=== PATIENT | female | born 1960 | race Caucasian/White ===

== ENCOUNTER 2016-09-20 18:05 | Emergency (ER) | payer MEDICAID ==
[~2016-09-20] VITALS: Ht 160 cm; Wt 59.0 kg
[2016-09-20] MEDS ORDERED: ASPIRIN 81 MG TABLET CHEW ONE (18:22)
[2016-09-20] MEDS ORDERED: ASPIRIN 81 MG TABLET CHEW PO ONE (18:30)
[2016-09-20] MEDS ORDERED: ASPI-496 PO (18:33)
[2016-09-20 18:40] LABS: BLOOD UREA NITROGEN 16 mg/dL (7-18)
[2016-09-20 18:45] LABS: IS PT STATUS REG ER OR PRE ER? YES
[2016-09-20 20:38] VITALS: BP 132/85
== END 2016-09-20 20:58 | disposition home or self-care (01) ==
LOC: ED 20:00
DX: M51.36 Other intervertebral disc degeneration, lumbar region (principal); G62.9 Polyneuropathy, unspecified; F17.200 Nicotine dependence, unspecified, uncomplicated
CPT/HCPCS: 36415; 71010; 72072; 72110; 80048; 81001; 82040; 83036; 83880; 84484; 85025; 87086; 93005

== ENCOUNTER 2016-11-08 15:36 | Emergency (ER) | payer MEDICAID ==
[~2016-11-08] VITALS: Ht 160 cm; Wt 60.0 kg
[~2016-11-08 15:36] MED LIST: ASPI-496 PO
[2016-11-08 15:38] VITALS: BP 112/78
[2016-11-08] MEDS ORDERED: CEFAZOLIN 1,000 MG ONE (16:12)
[2016-11-08] MEDS ORDERED: SULFAMETH./TRIMETHOPRIM DS 800MG/160MG TABLET ONE (16:13)
[2016-11-08] MEDS ORDERED: SULFAMETH./TRIMETHOPRIM DS 800MG/160MG TABLET PO ONE (16:30)
[2016-11-08] MEDS ORDERED: CEFAZOLIN 1,000 MG IM ONE (16:30)
== END 2016-11-08 17:19 | disposition home or self-care (01) ==
LOC: ED 16:28
DX: L03.116 Cellulitis of left lower limb (principal)
CPT/HCPCS: 96372; 99283; J0690

== ENCOUNTER 2018-08-16 14:37 | Emergency (ER) | payer MEDICAID, OTHER ==
[~2018-08-16] VITALS: Ht 160 cm; Wt 59.6 kg
[2018-08-16 14:43] VITALS: BP 111/69
--- NOTE | 2018-08-16 15:10 | NUR ---
PT HERE FOR REPORT OF RIGHT WRIST PAIN. PT DENIES ANY MAJOR TRUAMA. REPORTS CHRONIC PAIN.
[2018-08-16] MEDS ORDERED: IBUPROFEN 200 MG TABLET ONE (15:23)
--- NOTE | 2018-08-16 15:26 | NUR ---
PT MEDICATED PER EMAR.
[2018-08-16] MEDS ORDERED: IBUPROFEN 200 MG TABLET PO ONE (15:30)
--- NOTE | 2018-08-16 16:26 | NUR ---
PT HAD SPLINT APPLIED PRIOR TO DC.
--- NOTE | 2018-08-16 16:26 | NUR ---
Patient/Caregiver given discharge instructions and they have confirmed that they understand the instructions. Patient ambulatory with steady gait.
== END 2018-08-16 16:55 | disposition home or self-care (01) ==
LOC: ED 16:05
DX: S63.521A Sprain of radiocarpal joint of right wrist, initial encounter (principal); F17.200 Nicotine dependence, unspecified, uncomplicated; W20.8XXA Other cause of strike by thrown, projected or falling object, initial encounter; Y93.89 Activity, other specified; Y92.69 Other specified industrial and construction area as the place of occurrence of the external cause; Y99.0 Civilian activity done for income or pay
CPT/HCPCS: 29125; 99284

== ENCOUNTER 2020-08-29 11:30 | Emergency (ER) | payer MEDICAID ==
[~2020-08-29] VITALS: Ht 157.5 cm; Wt 60.2 kg
[2020-08-29 13:03] LABS: BASOPHILS % (AUTO) 2 % (0-1); EOSINOPHILS % (AUTO) 3 % (1-7); LYMPHOCYTES % (AUTO) 29 % (22-44); MEAN CORPUSCULAR HEMOGLOBIN 28.3 pg (27.0-34.8); MEAN CORPUSCULAR HGB CONC 33.7 g/dL (32.4-35.8); MONOCYTES % (AUTO) 9 % (2-9); NEUTROPHILS % (AUTO) 59 % (42-75); PLATELET COUNT 289 x10^3/uL (130-400); RED BLOOD COUNT 4.44 x10^6/uL (3.82-5.3); RED CELL DISTRIBUTION WIDTH 14.7 % (9.6-15.2)
[2020-08-29 13:16] LABS: ANION GAP 4 mmol/L (5-15); CHLORIDE 108 mmol/L (98-107); CREATININE 0.73 mg/dL (0.55-1.02)
[2020-08-29 13:23] LABS: ALANINE AMINOTRANSFERASE 50 U/L (12-78); ALKALINE PHOSPHATASE 87 U/L (45-117); BILIRUBIN,TOTAL 0.4 mg/dL (0.2-1.0); TOTAL PROTEIN 7.9 g/dL (6.4-8.2)
--- NOTE | 2020-08-29 13:53 | NUR ---
PATIENT WALKED BACK FROM TRIAGE WITH CHIEF C/O BILATERAL LOWER EXTREMITY SWELLING AND SOB X1 WEEK. PER PATIENT FAMILY HISTORY OF CHF. PATIENT REPORTS SHE WAS "FINE ONE DAY AND THE NEXT DAY I WOKE UP LIKE THIS." PATIENT C/O A 'HEARTBURN" LIKE PAIN IN HER CHEST, CONNECTED TO MONITORS, VSS, CALL LIGHT WITHIN REACH.
--- NOTE | 2020-08-29 14:08 | NUR ---
ERMD AT BEDSIDE FOR EVALUATION.
--- NOTE | 2020-08-29 14:35 | NUR ---
LINING MACHINE TENDER AT BEDSIDE.
--- NOTE | 2020-08-29 14:55 | NUR ---
SURVEYOR GEOPHYSICAL PROSPECTING DONE, PATIENT AMBULATED TO BATHROOM WITH STEADY GAIT.
[2020-08-29 15:17] VITALS: BP 134/81
--- NOTE | 2020-08-29 15:27 | NUR ---
Patient given discharge instructions and prescription and they have confirmed that they understand the instructions. Patient ambulatory with steady gait with significant other. NAD, all questions answered appropriately, denies additional needs at this time. No personal belongings left in room after discharge.
== END 2020-08-29 15:28 | disposition home or self-care (01) ==
LOC: ED 13:40
DX: R60.0 Localized edema (principal); F17.210 Nicotine dependence, cigarettes, uncomplicated; R07.9 Chest pain, unspecified
CPT/HCPCS: 36415; 71045; 80053; 83880; 85025; 93005; 93970; 99285